=== PATIENT | male | born 1950 | race Caucasian/White ===

== ENCOUNTER 2020-02-24 16:43 | Inpatient (IN) | payer OTHER ==
[~2020-02-24] VITALS: Ht 172.7 cm; Wt 99.8 kg
[2020-02-24 16:46] VITALS: Ht 172.7 cm; Wt 99.8 kg
[2020-02-24 17:33] LABS: BASOPHIL % 0.6 % (0-2); PLATELET COUNT 203 x10^3mcL (130-400); RED CELL DISTRIBUTION WIDTH 14.6 % (11.5-14.5)
[2020-02-24 17:38] LABS: CALCIUM 9.2 mg/dL (8.5-10.1); CARBON DIOXIDE 24.3 mmol/L (21-32); CHLORIDE SERUM 106 mmol/L (98-107); CREATININE SERUM 1.1 mg/dL (0.7-1.3); GFR1 > 60 mL/min; GLUCOSE SERUM 108 mg/dL (74-106); SODIUM SERUM 140 mmol/L (136-145)
[2020-02-24] MEDS ORDERED: LASIX20 MG PO (17:40)
[2020-02-24] MEDS ORDERED: ACETAMINOPHEN325 M3 PO (17:40)
[2020-02-24] MEDS ORDERED: TUMS CH (17:40)
[2020-02-24] MEDS ORDERED: OMEPRAZOLE20 M4 PO (17:41)
[2020-02-24] MEDS ORDERED: REPHRESH1 GEL PO (17:41)
[2020-02-24] MEDS ORDERED: GOOD NEIGH1200 MG/15 PO (17:41)
[2020-02-24] MEDS ORDERED: TAMSULOSIN HCL0.4 MG PO (17:41)
[2020-02-24 17:42] LABS: ALKALINE PHOSPHATASE 52 U/L (46-116); ALT/SGPT 16 U/L (16-63); AST/SGOT 17 U/L (15-37); BILIRUBIN TOTAL 0.7 mg/dL (0.20-1.00); LIPASE 66 IU/L (73-393); TOTAL PROTEIN, SERUM 6.5 g/dL (6.4-8.2)
[2020-02-24] MEDS ORDERED: CHILDREN'S NA10.8 ML NS (17:42)
[2020-02-24 17:43] LABS: ALBUMIN 3.3 g/dL (3.4-5.0)
[2020-02-24 17:46] LABS: microscopic required? YES; urine erythrocyte TRACE (NEGATIVE)
[2020-02-24 18:12] LABS: AMPHETAMINE QUAL UR NONE DETECTED (See below)
[2020-02-24 18:57] LABS: CHOLESTEROL/HDL RATIO 3.3; MAGNESIUM 2.1 mg/dL (1.8-2.4)
[2020-02-25 01:25] VITALS: BP 158/74
[2020-02-25 06:05] VITALS: BP 135/81
[2020-02-25 07:14] LABS: BASOPHIL % 0.6 % (0-2); PLATELET COUNT 166 x10^3mcL (130-400)
[2020-02-25 07:22] LABS: RED CELL DISTRIBUTION WIDTH 15.3 % (11.5-14.5)
[2020-02-25 07:49] LABS: CALCIUM 8.5 mg/dL (8.5-10.1); CARBON DIOXIDE 29.1 mmol/L (21-32); CHLORIDE SERUM 109 mmol/L (98-107); CREATININE SERUM 1.1 mg/dL (0.7-1.3); GFR1 > 60 mL/min; GLUCOSE SERUM 76 mg/dL (74-106); POTASSIUM SERUM 4.2 mmol/L (3.5-5.1); SODIUM SERUM 144 mmol/L (136-145)
[2020-02-25 09:06] VITALS: BP 127/81
[2020-02-25 12:47] VITALS: BP 123/80
[2020-02-25 17:43] VITALS: BP 139/63
[2020-02-25 22:08] VITALS: BP 127/55
[2020-02-26 05:10] VITALS: BP 119/64
[2020-02-26 09:33] VITALS: BP 145/82
[2020-02-26 13:18] VITALS: BP 136/74
[2020-02-26 17:12] VITALS: BP 120/57
[2020-02-26 21:22] VITALS: BP 118/76
[2020-02-27 05:26] VITALS: BP 132/78
[2020-02-27 07:59] VITALS: BP 105/75
[2020-02-27 11:37] VITALS: BP 114/71
[2020-02-27 15:45] VITALS: BP 107/59
[2020-02-27 20:20] VITALS: BP 156/78
[2020-02-28 05:30] VITALS: BP 152/77
[2020-02-28 07:48] VITALS: BP 135/63
[2020-02-28 08:02] LABS: BASOPHIL % 0.2 % (0-2); PLATELET COUNT 179 x10^3mcL (130-400)
[2020-02-28 08:07] LABS: CALCIUM 8.8 mg/dL (8.5-10.1); CARBON DIOXIDE 32.4 mmol/L (21-32); CHLORIDE SERUM 106 mmol/L (98-107); CREATININE SERUM 1.1 mg/dL (0.7-1.3); GFR1 > 60 mL/min; GLUCOSE SERUM 88 mg/dL (74-106); POTASSIUM SERUM 4.4 mmol/L (3.5-5.1); SODIUM SERUM 142 mmol/L (136-145)
[2020-02-28 08:17] LABS: RED CELL DISTRIBUTION WIDTH 15.3 % (11.5-14.5)
[2020-02-28 11:27] VITALS: BP 116/73
[2020-02-28 15:54] VITALS: BP 126/65
[2020-02-28 20:34] VITALS: BP 147/62
[2020-02-29 05:43] VITALS: BP 127/64
[2020-02-29 09:26] VITALS: BP 132/51
[2020-02-29 13:46] VITALS: BP 156/63
[2020-02-29 16:05] VITALS: BP 110/59
[2020-02-29 18:32] VITALS: BP 110/59
== END 2020-02-29 20:50 | disposition other institution (70) | DRG 280 ==
LOC: ED 16:43 → DU 18:14
PROVIDERS: Emergency Medicine; ADMIT Internal Medicine; ATTEND Internal Medicine
DX: I21.4 Non-ST elevation (NSTEMI) myocardial infarction (principal); J96.01 Acute respiratory failure with hypoxia; I25.10 Atherosclerotic heart disease of native coronary artery without angina pectoris; K21.9 Gastro-esophageal reflux disease without esophagitis; Z85.46 Personal history of malignant neoplasm of prostate; N40.0 Benign prostatic hyperplasia without lower urinary tract symptoms; Z88.6 Allergy status to analgesic agent; Z88.8 Allergy status to other drugs, medicaments and biological substances; Z20.828 Contact with and (suspected) exposure to other viral communicable diseases
CPT/HCPCS: 83880; A9500; C9113; G0378; J1100; J1650; J2785; Q0092; U0003-CS